=== PATIENT | female | born 2000 | race Caucasian/White ===

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

== ENCOUNTER 2020-01-25 13:25 | Emergency (ER) | payer OTHER ==
[~2020-01-25] VITALS: Ht 165.1 cm; Wt 122.5 kg
[~2020-01-25 13:25] MED LIST changes: +CYCLOBENZAPRINE10 MG PO; +Motrin,Rufen800 MG PO
== END 2020-01-25 14:58 | disposition home or self-care (01) ==
LOC: ED 13:25
DX: S00.03XA Contusion of scalp, initial encounter (principal); E66.9 Obesity, unspecified; F17.200 Nicotine dependence, unspecified, uncomplicated; Z88.8 Allergy status to other drugs, medicaments and biological substances; W01.198A Fall on same level from slipping, tripping and stumbling with subsequent striking against other object, initial encounter; Y93.89 Activity, other specified; Y92.89 Other specified places as the place of occurrence of the external cause; Y99.8 Other external cause status

== ENCOUNTER 2021-02-25 19:08 | Emergency (ER) | payer OTHER ==
[~2021-02-25] VITALS: Ht 162.5 cm; Wt 124.5 kg
[2021-02-25] MEDS ORDERED: CYCLOBENZAPRINE5 M3 PO (21:13)
== END 2021-02-25 21:17 | disposition home or self-care (01) ==
LOC: ED 19:08
DX: R51.9 Headache, unspecified (principal); F32.9 Major depressive disorder, single episode, unspecified; F41.9 Anxiety disorder, unspecified; F17.200 Nicotine dependence, unspecified, uncomplicated; Z88.8 Allergy status to other drugs, medicaments and biological substances

== ENCOUNTER 2021-06-12 13:50 | Emergency (ER) | payer OTHER ==
[~2021-06-12] VITALS: Ht 162.5 cm; Wt 127.0 kg
[~2021-06-12 13:50] MED LIST changes: +CYCLOBENZAPRINE5 M3 PO
[2021-06-12 14:16] LABS: BILIRUBIN Negative (Negative); BLOOD 2+ (Negative); CLARITY Cloudy (Clear); COLOR Yellow (Yellow); GLUCOSE Negative (Negative); KETONE Negative (Negative); LEUKO ESTERASE 2+ (Negative); NITRITE Positive (Negative); SPECIFIC GRAVITY 1.015 (1.001-1.030)
[2021-06-12 14:24] LABS: BACTERIA 4+
[2021-06-12] MEDS ORDERED: PRENATAL TABLE1 EAC2 PO (14:26)
[2021-06-12] MEDS ORDERED: CEPHALEXIN500 M1 PO (14:34)
== END 2021-06-12 14:42 | disposition home or self-care (01) ==
LOC: ED 13:50
PROVIDERS: Nurse Practitioner Family
DX: O23.41 Unspecified infection of urinary tract in pregnancy, first trimester (principal); O99.331 Smoking (tobacco) complicating pregnancy, first trimester; F17.210 Nicotine dependence, cigarettes, uncomplicated; Z88.8 Allergy status to other drugs, medicaments and biological substances; Z79.899 Other long term (current) drug therapy; Z3A.01 Less than 8 weeks gestation of pregnancy

== ENCOUNTER → 2021-08-24 | Outpatient (CLI) | payer OTHER ==
[~2021-08-24] MED LIST changes: +CEPHALEXIN500 M1 PO; +PRENATAL TABLE1 EAC2 PO
== END | disposition home or self-care (01) ==
LOC: US 15:00
PROVIDERS: ATTEND Nurse Practitioner Women's Health
DX: Z34.02 Encounter for supervision of normal first pregnancy, second trimester (principal); Z3A.15 15 weeks gestation of pregnancy

== ENCOUNTER → 2023-04-05 | Outpatient (CLI) | payer OTHER | END | disposition home or self-care (01) | LOC: US 13:30 | PROVIDERS: ATTEND Nurse Practitioner Women's Health | DX: N63.21 Unspecified lump in the left breast, upper outer quadrant (principal) ==

== ENCOUNTER 2023-10-04 19:02 | Emergency (ER) | payer OTHER ==
[~2023-10-04] VITALS: Ht 162.5 cm; Wt 122.5 kg
[2023-10-04 19:49] LABS: BILIRUBIN Negative (Negative); BLOOD 3+ (Negative); CLARITY Turbid (Clear); COLOR Yellow (Yellow); GLUCOSE Negative (Negative); KETONE Negative (Negative); LEUKO ESTERASE 3+ (Negative); NITRITE Positive (Negative); PH 6.5 (4.5-8.0); SPECIFIC GRAVITY 1.015 (1.001-1.030); UROBILINOGEN 0.2 E.U./dl (0.0-1.0)
[2023-10-04 20:07] LABS: BACTERIA 2+; WBC TNTC wbc/hpf (0-5)
[2023-10-04] MEDS ORDERED: CIPRO500 MG PO ×3 (20:29→20:43)
== END 2023-10-04 20:47 | disposition home or self-care (01) ==
LOC: ED 19:02
PROVIDERS: Internal Medicine
DX: N39.0 Urinary tract infection, site not specified (principal); R35.0 Frequency of micturition; F32.A Depression, unspecified; F41.9 Anxiety disorder, unspecified; Z88.8 Allergy status to other drugs, medicaments and biological substances; Z87.891 Personal history of nicotine dependence

== ENCOUNTER 2024-02-10 17:32 | Emergency (ER) | payer OTHER ==
[~2024-02-10] VITALS: Ht 162.5 cm; Wt 131.5 kg
[~2024-02-10 17:32] MED LIST changes: +CIPRO500 MG PO
[2024-02-10] MEDS ORDERED: SODIUM CHLORIDE 0.9% 1,000 ML IV ONE (18:10)
[2024-02-10] MEDS ORDERED: Ketorolac Tromethamine 30 MG/ML VIAL IV ONE ×2 (18:10→21:15)
[2024-02-10 18:21] LABS: BASO # 0.1 10*3/uL (0.0-0.1); BASO % 0.8 % (0.0-1.0); EOS # 0.1 10*3/uL (0.0-0.4); EOS % 1.1 % (1.0-4.0); HEMATOCRIT 49.2 % (37.0-47.0); LYMPH # 3.5 10*3/uL (1.3-4.4); LYMPH % 27.7 % (27.0-41.0); MEAN CORPUSCULAR HGB 27.5 pg (27.0-31.0); MEAN CORPUSCULAR HGB CONC 31.3 g/dl (33.0-37.0); MEAN PLATELET VOLUME 11.2 fl (9.6-12.3); MONO # 0.8 10*3/uL (0.1-1.0); MONO % 6.4 % (3.0-9.0); NEUT # 8.1 10*3/uL (2.3-7.9); NEUT % 63.8 % (47.0-73.0); PLATELET COUNT AUTOMATED 362 10*3/uL (130-400); RED BLOOD COUNT 5.59 10*6/uL (4.10-5.10); RED CELL DISTRI WIDTH 13.3 % (0-14.5); WHITE BLOOD COUNT 12.7 10*3/uL (4.8-10.8)
[2024-02-10] MEDS ORDERED: IOHEXOL 350 MG/ML 100 ML VIAL IV ONE (18:30)
[2024-02-10] MEDS ORDERED: SODIUM CHLORIDE 0.9% 100 ML BAG IV ONE (18:30)
[2024-02-10 18:32] LABS: ACT PARTIAL THROMBO TIME 30.9 SECONDS (20.0-32.1)
[2024-02-10 18:42] LABS: ALKALINE PHOSPHATASE 118 U/L (46-116); BUN 7 mg/dl (9-23); CHLORIDE 106 mmol/L (98-107); LIPASE 33 U/L (12-53); POTASSIUM 3.9 mmol/L (3.4-5.1); SGPT/ALT 38 U/L (5-49); TOTAL PROTEIN 7.3 gm/dL (6.0-8.0)
[2024-02-10 20:48] LABS: BILIRUBIN Negative (Negative); BLOOD Negative (Negative); CLARITY Cloudy (Clear); COLOR Yellow (Yellow); GLUCOSE Negative (Negative); KETONE Negative (Negative); LEUKO ESTERASE 2+ (Negative); NITRITE Negative (Negative); PH 6.5 (4.5-8.0); SPECIFIC GRAVITY 1.015 (1.001-1.030); UROBILINOGEN 0.2 E.U./dl (0.0-1.0)
[2024-02-10 21:09] LABS: BACTERIA TRACE; EPITHELIAL CELLS 31-40
== END 2024-02-11 06:19 | disposition home or self-care (01) ==
LOC: ED 17:32
PROVIDERS: Physician Assistant
DX: F41.9 Anxiety disorder, unspecified (principal); R00.2 Palpitations; Z88.8 Allergy status to other drugs, medicaments and biological substances; Z79.2 Long term (current) use of antibiotics

== ENCOUNTER 2024-04-27 20:18 | Emergency (ER) | payer OTHER ==
[~2024-04-27] VITALS: Ht 162.5 cm; Wt 131.5 kg
[2024-04-27] MEDS ORDERED: VIBRAMYCIN100 MG PO (20:39)
[2024-04-27] MEDS ORDERED: Doxycycline Hyclate 100 MG CAP PO ONE (20:45)
== END 2024-04-27 20:50 | disposition home or self-care (01) ==
LOC: ED 20:18
DX: L73.2 Hidradenitis suppurativa (principal); F41.9 Anxiety disorder, unspecified; F32.A Depression, unspecified; K21.9 Gastro-esophageal reflux disease without esophagitis; Z88.8 Allergy status to other drugs, medicaments and biological substances

== ENCOUNTER → 2024-05-31 | Outpatient (CLI) | payer OTHER ==
[~2024-05-31] MED LIST changes: +VIBRAMYCIN100 MG PO
== END | disposition home or self-care (01) ==
LOC: CARD 10:55
PROVIDERS: ATTEND Physician Assistant
DX: R00.2 Palpitations (principal)

== ENCOUNTER 2024-06-11 17:24 | Emergency (ER) | payer OTHER ==
[~2024-06-11] VITALS: Ht 160 cm; Wt 136.1 kg
[2024-06-11] MEDS ORDERED: PENICILLIN VK500 MG PO (18:28)
[2024-06-11] MEDS ORDERED: Motrin,Rufen800 MG PO (18:28)
[2024-06-11] MEDS ORDERED: Acetaminophen/Hydrocodone 5 MG/325 MG TABLET PO ONE (18:30)
[2024-06-11] MEDS ORDERED: PENICILLIN V POTASSIUM 500 MG TAB PO ONE (18:30)
== END 2024-06-11 18:40 | disposition home or self-care (01) ==
LOC: ED 17:24
DX: K08.89 Other specified disorders of teeth and supporting structures (principal); F41.9 Anxiety disorder, unspecified; K21.9 Gastro-esophageal reflux disease without esophagitis; Z88.8 Allergy status to other drugs, medicaments and biological substances; Z79.2 Long term (current) use of antibiotics

== ENCOUNTER 2024-06-15 20:01 | Emergency (ER) | payer OTHER ==
[~2024-06-15] VITALS: Ht 160 cm; Wt 131.5 kg
[~2024-06-15 20:01] MED LIST changes: +PENICILLIN VK500 MG PO
[2024-06-15] MEDS ORDERED: IBUPROFEN 800 MG TAB PO ONE (20:20)
== END 2024-06-15 22:00 | disposition home or self-care (01) ==
LOC: ED 20:01
DX: S93.601A Unspecified sprain of right foot, initial encounter (principal); F32.A Depression, unspecified; F41.9 Anxiety disorder, unspecified; Z88.8 Allergy status to other drugs, medicaments and biological substances; X50.1XXA Overexertion from prolonged static or awkward postures, initial encounter; Y93.01 Activity, walking, marching and hiking; Y92.009 Unspecified place in unspecified non-institutional (private) residence as the place of occurrence of the external cause; Y99.8 Other external cause status

== ENCOUNTER 2024-08-06 16:41 | Emergency (ER) | payer OTHER ==
[~2024-08-06] VITALS: Ht 160 cm; Wt 131.5 kg
[2024-08-06] MEDS ORDERED: ASPERCREME LID1 EACH T (17:52)
[2024-08-06] MEDS ORDERED: TYLENOL EXTRA500 MG PO (17:52)
[2024-08-06] MEDS ORDERED: Motrin,Rufen400 MG PO (17:52)
[2024-08-06] MEDS ORDERED: ACETAMINOPHEN 325 MG TAB PO ONE (17:55)
[2024-08-06] MEDS ORDERED: LIDOCAINE 4% PATCH T ONE (17:55)
[2024-08-06] MEDS ORDERED: IBUPROFEN 400 MG TAB PO ONE (17:55)
== END 2024-08-06 17:57 | disposition home or self-care (01) ==
LOC: ED 16:41
DX: M54.2 Cervicalgia (principal); R51.9 Headache, unspecified; R00.2 Palpitations; F41.9 Anxiety disorder, unspecified; K21.9 Gastro-esophageal reflux disease without esophagitis; F32.A Depression, unspecified; F17.200 Nicotine dependence, unspecified, uncomplicated; Z88.8 Allergy status to other drugs, medicaments and biological substances

== ENCOUNTER → 2024-08-29 | Outpatient (CLI) | payer OTHER ==
[~2024-08-29] MED LIST changes: +ASPERCREME LID1 EACH T; +Motrin,Rufen400 MG PO; +TYLENOL EXTRA500 MG PO
== END | disposition home or self-care (01) ==
LOC: CARD 12:31
PROVIDERS: ATTEND Internal Medicine Cardiovascular Disease
DX: R00.2 Palpitations (principal); R06.02 Shortness of breath; R07.89 Other chest pain

== ENCOUNTER → 2025-02-10 | Outpatient (CLI) | payer OTHER | END | disposition home or self-care (01) | LOC: ORTHO 02:04 | PROVIDERS: ATTEND Orthopaedic Surgery | DX: M25.512 Pain in left shoulder (principal); M25.511 Pain in right shoulder ==